=== PATIENT | male | born 1975 | race Caucasian/White ===

== ENCOUNTER 2017-04-12 10:11 | Emergency (ER) | payer MEDICARE, MEDICAID ==
[2017-04-12 10:28] VITALS: BP 173/106
--- NOTE | 2017-04-12 10:56 | EDM.PDOC ---
ED HPI GENERAL MEDICAL PROBLEM - General Chief Complaint: General Stated Complaint: MEDICATION/SHOT Time Seen by Provider: 04/12/17 10:48 Source of Information: Reports: Patient, Family, RN Notes Reviewed History Limitations: Reports: Physical Impairment - History of Present Illness INITIAL COMMENTS - FREE TEXT/NARRATIVE: Are 1-year-old gentleman with known history of paranoid schizophrenia comes in for medication administration of Abilify intramuscular he is in the process of changing providers has not fully establish with Dr. Cortes at the [facility] at which time he will get his medications there - Related Data Allergies Allergy/AdvReac Type Severity Reaction Status Date / Time haloperidol [From Haldol] AdvReac Agitation Verified 04/12/17 10:47 Home Meds: Home Meds ARIPiprazole [Abilify Maintena] 1 injection IM ASDIRECTED 04/12/17 [History] LORazepam [Ativan] 1 tab PO DAILY PRN 04/12/17 [History] Melatonin/Pyridoxine HCl (B6) [Melatonin 5 mg Tablet] 1 tab PO BEDTIME 04/12/17 [History] OLANZapine [Olanzapine] 1 tab PO BEDTIME 04/12/17 [History] OLANZapine [Olanzapine] 1 tab PO DAILY PRN 04/12/17 [History] glipiZIDE [Glucotrol] 1 tab PO DAILY 04/12/17 [History] Past Medical History Cardiovascular History: Reports: Hypertension Neurological History: Reports: Other (See Below) Other Neuro History: tardative dyskinesia Psychiatric History: Reports: Depression, Schizophrenia Endocrine/Metabolic History: Reports: Diabetes, Type II, Obesity/BMI 30+ - Infectious Disease History Infectious Disease History: Reports: Chicken pox Social & Family History - Tobacco Use Smoking Status *Q: Current Every Day Smoker Years of Tobacco use: 30 Packs/Tins Daily: 0.2 - Caffeine Use Caffeine Use: Reports: Coffee - Recreational Drug Use Recreational Drug Use: No ED ROS GENERAL - Review of Systems Review Of Systems: Unable To Obtain ED EXAM, GENERAL - Physical Exam Exam: Not Obtained Course - Vital Signs Last Recorded V/S: Last Vital Signs Temp 99.0 F 04/12/17 10:23 Pulse 75 04/12/17 10:23 Resp 18 04/12/17 10:23 BP 173/106 H 04/12/17 10:23 Pulse Ox 93 L 04/12/17 10:23 Departure - Departure Time of Disposition: 10:55 Disposition: Home, Self-Care 01 Condition: fair Clinical Impression: Schizophrenia Qualifiers: Schizophrenia type: paranoid schizophrenia Qualified Code(s): F20.0 - Paranoid schizophrenia - Discharge Information Forms: ED Department Discharge Additional Instructions: Continue on your current medications, keep your followup appointment with your primary care provider - Assessment/Plan Plan: Assessment Acuity = chronic Site and laterality = paranoid schizophrenia Etiology = unclear etiology Manifestations = paranoid delusions Location of injury = home Plan His care provider did have medication of Abilify 400 mg IM x one this was verified by pharmacy Patient was in agreement with the plan all questions were answered, they were instructed to return to the emergency department or call for worsening symptoms. This note was dictated using Synchronized voice recognition software please call with any questions.
[2017-04-12] MEDS ORDERED: ABILIFY MAINTENA 400MG IM ONE (11:30)
== END 2017-04-12 11:04 | disposition home or self-care (01) ==
LOC: JP.ED 10:11
DX: F20.0 Paranoid schizophrenia (principal); I10 Essential (primary) hypertension; F32.9 Major depressive disorder, single episode, unspecified; E11.9 Type 2 diabetes mellitus without complications; E66.9 Obesity, unspecified; Z68.42 Body mass index [BMI] 45.0-49.9, adult; F17.210 Nicotine dependence, cigarettes, uncomplicated; Z88.8 Allergy status to other drugs, medicaments and biological substances; Z79.899 Other long term (current) drug therapy
CPT/HCPCS: 99281; 99285

== ENCOUNTER 2017-04-22 13:05 | Emergency (ER) | payer MEDICARE, MEDICAID ==
[2017-04-22 13:29] VITALS: BP 198/116
--- NOTE | 2017-04-22 16:09 | EDM.PDOC ---
ED HPI GENERAL MEDICAL PROBLEM - General Chief Complaint: Behavioral/Psych Stated Complaint: EVEL Time Seen by Provider: 04/22/17 14:00 Source of Information: Reports: Patient, Family History Limitations: Reports: No Limitations - History of Present Illness INITIAL COMMENTS - FREE TEXT/NARRATIVE: Gil is a 41 year old male who presents to the ED today via police for evaluation of mental health. Patient on arrival here is in no acute distress, he is calm and cooperative. Police mentioned that patient did not want to attend his clinic appt today and begin talking about going to lunch at the governor's house and didn't want to go to his appt. Patient denies any complaints on arrival. Onset: Today left foot Pain Score (Numeric/FACES): 4 - Related Data Allergies Allergy/AdvReac Type Severity Reaction Status Date / Time haloperidol [From Haldol] AdvReac Agitation Verified 04/22/17 13:42 Home Meds: Home Meds ARIPiprazole [Abilify Maintena] 1 injection IM ASDIRECTED 04/12/17 [History] LORazepam [Ativan] 1 tab PO DAILY PRN 04/12/17 [History] Melatonin/Pyridoxine HCl (B6) [Melatonin 5 mg Tablet] 1 tab PO BEDTIME 04/12/17 [History] OLANZapine [Olanzapine] 1 tab PO BEDTIME 04/12/17 [History] OLANZapine [Olanzapine] 1 tab PO DAILY PRN 04/12/17 [History] glipiZIDE [Glucotrol] 1 tab PO DAILY 04/12/17 [History] Past Medical History Cardiovascular History: Reports: Hypertension Neurological History: Reports: Other (See Below) Other Neuro History: tardative dyskinesia Psychiatric History: Reports: Depression, Schizophrenia, Other (See Below) Other Psychiatric History: delusions Endocrine/Metabolic History: Reports: Diabetes, Type II, Obesity/BMI 30+ - Infectious Disease History Infectious Disease History: Reports: Chicken Pox Social & Family History - Tobacco Use Smoking Status *Q: Current Every Day Smoker Years of Tobacco use: 30 Packs/Tins Daily: 0.1 - Caffeine Use Caffeine Use: Reports: Coffee - Recreational Drug Use Recreational Drug Use: No ED ROS GENERAL - Review of Systems Review Of Systems: ROS reveals no pertinent complaints other than HPI. ED EXAM, BEHAVIORAL HEALTH - Physical Exam Exam: See Below Exam Limited By: No Limitations General Appearance: Alert, WD/WN, No Apparent Distress Neck: Normal Inspection Respiratory/Chest: No Respiratory Distress, Lungs Clear, Normal Breath Sounds Cardiovascular: Normal Peripheral Pulses, Regular Rate, Rhythm, No Murmur GI/Abdominal: Normal Bowel Sounds, Soft, Non-Tender Extremities: Normal Inspection, Other (large blister to plantar aspect of left foot, callous to right lateral first metatarsal, bruised nail on second to of right foot) Neurological: Alert, Normal Mood/Affect, Oriented x 3 Psychiatric: Alert, Flat Affect COURSE, BEHAVIORAL HEALTH COMP - Course Vital Signs: Last Vital Signs Temp 37.8 C 04/22/17 13:41 Pulse 90 04/22/17 13:41 Resp 16 04/22/17 13:41 BP 198/116 H 04/22/17 13:41 Pulse Ox 95 04/22/17 13:41 Gil is a 41 year old male with a hx of schizophrenia and vasculitis who presents to the ED today as requested by his mom for what initially was reported to be a mental health evaluation. Patient is in no acute distress on arrival here. Patient has some blisters/callouses to feet with no signs of infection or cellulitis. Mom arrived to the ED and I spent a fair amount of time discussed patient's arrival here today and what her goal was in bringing patient here. Mom reports that she would like patient admitted overnight for "medical evaluation". Mom reports patient lacks insight secondary to his schizophrenia and every time he has a doctors appt he becomes upset and starts talking about false grandiose ideas. Patient has an appt with primary today at 4:10 and when mom told him about this is when he began saying he needed to see the governor. Mom reports that patient is diabetic secondary to psych meds, he takes Glipizide daily. Patient is also on abilify. Mom reports patient has a neonatal social worker and support from the state to keep him at home living with her. I informed Mom that I will check some routine blood work today but it is unlikely that patient would meet any medical indication for admission and that primary care establishment/follow up is essential in keeping up to date with his elevated blood pressure hx and diabetes. Blood work here today returns with normal white count and HGB, CMP returns with mildly elevated ALT and AST of 92 and 59. Glucose returns at 159, HGB a1c is 8.2. TSH is normal. I discussed my findings with patient's mom at 1535, she is hoping to still make clinic appt, unfortunately she cancelled this appt and clinic cannot see patient today. A list of date and times was given to mom to call back and reschedule. Mom reports she feels safe taking patient home today and does not want patient seen by crisis team nor was she looking for any type of inpatient psych facility/admission. Patient denies self harm/or suidical ideation today. He denies any intent to harm anyone else. Patient was discharged with his mom and in stable condition. Orders, Labs, Meds: Laboratory Tests 04/22/17 04/22/17 04/22/17 Range/Units 14:57 14:57 14:57 WBC 9.4 (4.5-11.0) K/uL RBC 5.23 (4.30-5.90) M/uL Hgb 14.5 (12.0-15.0) g/dL Hct 42.2 (40.0-54.0) % MCV 81 (80-98) fL MCH 28 (27-31) pg MCHC 34 (32-36) % Plt Count 213 (150-400) K/uL Neut % (Auto) 73 H (36-66) % Lymph % (Auto) 17 L (24-44) % Gray % (Auto) 9 H (2-6) % Eos % (Auto) 0 L (2-4) % Baso % (Auto) 0 (0-1) % Sodium 141 (140-148) mmol/L Potassium 3.9 (3.6-5.2) mmol/L Chloride 104 (100-108) mmol/L Carbon Dioxide 26 (21-32) mmol/L Anion Gap 10.8 (5.0-14.0) mmol/L BUN 12 (7-18) mg/dL Creatinine 1.0 (0.8-1.3) mg/dL Est Cr Clr Drug Dosing 105.62 mL/min Estimated GFR (MDRD) > 60 (>60) Glucose 159 H (74-106) mg/dL Hemoglobin A1c 8.2 H (4.5-6.2) % Calcium 8.7 (8.5-10.1) mg/dL Total Bilirubin 0.6 (0.2-1.0) mg/dL AST 59 H (15-37) U/L ALT 92 H (12-78) U/L Alkaline Phosphatase 77 (46-116) U/L Total Protein 7.6 (6.4-8.2) g/dL Albumin 3.9 (3.4-5.0) g/dL Globulin 3.7 H (2.3-3.5) g/dL Albumin/Globulin Ratio 1.1 L (1.2-2.2) TSH, Ultra Sensitive (0.358-3.740) uIU/mL 04/22/17 Range/Units 14:57 WBC (4.5-11.0) K/uL RBC (4.30-5.90) M/uL Hgb (12.0-15.0) g/dL Hct (40.0-54.0) % MCV (80-98) fL MCH (27-31) pg MCHC (32-36) % Plt Count (150-400) K/uL Neut % (Auto) (36-66) % Lymph % (Auto) (24-44) % Gray % (Auto) (2-6) % Eos % (Auto) (2-4) % Baso % (Auto) (0-1) % Sodium (140-148) mmol/L Potassium (3.6-5.2) mmol/L Chloride (100-108) mmol/L Carbon Dioxide (21-32) mmol/L Anion Gap (5.0-14.0) mmol/L BUN (7-18) mg/dL Creatinine (0.8-1.3) mg/dL Est Cr Clr Drug Dosing mL/min Estimated GFR (MDRD) (>60) Glucose (74-106) mg/dL Hemoglobin A1c (4.5-6.2) % Calcium (8.5-10.1) mg/dL Total Bilirubin (0.2-1.0) mg/dL AST (15-37) U/L ALT (12-78) U/L Alkaline Phosphatase (46-116) U/L Total Protein (6.4-8.2) g/dL Albumin (3.4-5.0) g/dL Globulin (2.3-3.5) g/dL Albumin/Globulin Ratio (1.2-2.2) TSH, Ultra Sensitive 1.517 (0.358-3.740) uIU/mL Departure - Departure Time of Disposition: 16:30 Disposition: Home, Self-Care 01 Preliminary Cause of *Q: Cardiac arrest Condition: good Clinical Impression: Blister, Vasculitis limited to skin Schizophrenia Qualifiers: Schizophrenia type: unspecified Qualified Code(s): F20.9 - Schizophrenia, unspecified - Discharge Information Instructions: Vasculitis Referrals: PCP,None [Primary Care Provider] - Forms: ED Department Discharge
== END 2017-04-22 16:09 | disposition home or self-care (01) ==
LOC: JP.ED 13:05
DX: L95.9 Vasculitis limited to the skin, unspecified (principal); F20.9 Schizophrenia, unspecified; I10 Essential (primary) hypertension; F32.9 Major depressive disorder, single episode, unspecified; E11.9 Type 2 diabetes mellitus without complications; F17.210 Nicotine dependence, cigarettes, uncomplicated; E66.9 Obesity, unspecified; Z68.42 Body mass index [BMI] 45.0-49.9, adult; Z79.899 Other long term (current) drug therapy; Z88.8 Allergy status to other drugs, medicaments and biological substances
CPT/HCPCS: 36415; 80053; 83036; 84443; 85025; 99282; 99285

== ENCOUNTER 2017-11-30 04:39 | Emergency (ER) | payer MEDICARE, MEDICAID ==
[2017-11-30 04:45] VITALS: BP 146/87
--- NOTE | 2017-11-30 05:14 | EDM.PDOCBH ---
<Ana Laura Valdovinos - Last Filed: 11/30/17 05:18> ED HPI GENERAL MEDICAL PROBLEM - General Chief Complaint: Behavioral/Psych Stated Complaint: PSYCH EVAL / BROUGHT IN BY LAW ENFORCEMENT Time Seen by Provider: 11/30/17 05:09 Source of Information: Reports: Patient History Limitations: Reports: No Limitations - History of Present Illness INITIAL COMMENTS - FREE TEXT/NARRATIVE: pt arrived with a history of being out of contact with reality. He was outside not properly dressed today. he was threating to leave. The weather outside is 20 below . He would be at risk to be njured from the weather. He appears to be out of contact with reality. He is calling his mother a foot soldier. Onset: Gradual, Other (Pt has been much worse the past few weeks. He has not taken any meds for a long time. ) Duration: Week(s):, Getting Worse - Related Data Allergies Allergy/AdvReac Type Severity Reaction Status Date / Time haloperidol [From Haldol] AdvReac Agitation Verified 04/22/17 13:42 Home Meds: Home Meds OLANZapine [ZyPREXA Zydis] 5 mg PO DAILY PRN 11/30/17 [History] OLANZapine [ZyPREXA Zydis] 15 mg PO DAILY 11/30/17 [History] metFORMIN [Glucophage] 500 mg PO QID 11/30/17 [History] Past Medical History Cardiovascular History: Reports: Hypertension Neurological History: Reports: Other (See Below) Other Neuro History: tardative dyskinesia Psychiatric History: Reports: Depression, Schizophrenia, Other (See Below) Other Psychiatric History: delusions Endocrine/Metabolic History: Reports: Diabetes, Type II, Obesity/BMI 30+ - Infectious Disease History Infectious Disease History: Reports: Chicken Pox Social & Family History - Tobacco Use Smoking Status *Q: Current Every Day Smoker Years of Tobacco use: 25 Packs/Tins Daily: 0.2 Tobacco Use Comment: 3 cigars a day - Caffeine Use Caffeine Use: Reports: None - Alcohol Use Days Per Week of Alcohol Use: 3 Number of Drinks Per Day: 1 Total Drinks Per Week: 3 - Recreational Drug Use Recreational Drug Use: No ED ROS GENERAL - Review of Systems Review Of Systems: See Below Constitutional: Reports: No Symptoms HEENT: Reports: No Symptoms Respiratory: Reports: No Symptoms Cardiovascular: Reports: No Symptoms Endocrine: Reports: No Symptoms GI/Abdominal: Reports: No Symptoms : Reports: No Symptoms Musculoskeletal: Reports: No Symptoms Skin: Reports: No Symptoms Psychiatric: Reports: Agitation, Hallucinations, Other (pt has total los of contact with reality. ) ED EXAM, BEHAVIORAL HEALTH - Physical Exam Exam: See Below Text/Narrative:: pt was outside today threatening to run. It is 20 below. He has no contact with reality. He has been off of all meds. Exam Limited By: Altered Mental Status General Appearance: Alert, Other ( Pt makes no sense, los of contact with reality. He did not want a physical exam. ) COURSE, BEHAVIORAL HEALTH COMP - Course Vital Signs: Last Vital Signs Temp 95.8 F 11/30/17 04:41 Pulse 87 11/30/17 04:41 Resp 18 11/30/17 04:41 BP 146/87 H 11/30/17 04:41 Pulse Ox 96 11/30/17 04:41 Orders, Labs, Meds: Laboratory Tests 11/30/17 11/30/17 11/30/17 Range/Units 05:07 05:10 05:10 WBC 7.2 (4.5-11.0) K/uL RBC 5.63 (4.30-5.90) M/uL Hgb 15.9 H (12.0-15.0) g/dL Hct 46.2 (40.0-54.0) % MCV 82 (80-98) fL MCH 28 (27-31) pg MCHC 34 (32-36) % Plt Count 177 (150-400) K/uL Neut % (Auto) 67 H (36-66) % Lymph % (Auto) 24 (24-44) % [place] % (Auto) 9 H (2-6) % Eos % (Auto) 0 L (2-4) % Baso % (Auto) 0 (0-1) % Sodium 135 L (140-148) mmol/L Potassium 4.1 (3.6-5.2) mmol/L Chloride 100 (100-108) mmol/L Carbon Dioxide 24 (21-32) mmol/L Anion Gap 15.1 H (5.0-14.0) mmol/L BUN 7 (7-18) mg/dL Creatinine 1.1 (0.8-1.3) mg/dL Est Cr Clr Drug Dosing 95.04 mL/min Estimated GFR (MDRD) > 60 (>60) Glucose 396 H (74-106) mg/dL Calcium 9.0 (8.5-10.1) mg/dL Total Bilirubin 0.5 (0.2-1.0) mg/dL AST 38 H (15-37) U/L ALT 68 (12-78) U/L Alkaline Phosphatase 89 (46-116) U/L Total Protein 6.9 (6.4-8.2) g/dL Albumin 3.5 (3.4-5.0) g/dL Globulin 3.4 (2.3-3.5) g/dL Albumin/Globulin Ratio 1.0 L (1.2-2.2) TSH, Ultra Sensitive (0.358-3.740) uIU/mL Urine Color Urine Appearance Urine pH (4.5-8.0) Ur Specific [place] (1.008-1.030) Urine Protein (NEGATIVE) mg/dL Urine Glucose (UA) (NEGATIVE) mg/dL Urine Ketones (NEGATIVE) mg/dL Urine Occult Blood (NEGATIVE) Urine Nitrite (NEGAITVE) Urine Bilirubin (NEGATIVE) Urine Urobilinogen (NORMAL) mg/dL Ur Leukocyte Esterase (NEGATIVE) Urine RBC (0-5) Urine WBC (0-5) Ur Epithelial Cells Amorphous Sediment Urine Bacteria Urine Mucus Salicylates (2.0-20.0) mg/dL Urine Opiates Screen (NEGATIVE) Ur Oxycodone Screen (NEGATIVE) Urine Methadone Screen (NEGATIVE) Ur Propoxyphene Screen (NEGATIVE) Acetaminophen (10.0-30.0) ug/mL Ur Barbiturates Screen (NEGATIVE) Ur Tricyclics Screen (NEGATIVE) Ur Phencyclidine Scrn (NEGATIVE) Ur Amphetamine Screen (NEGATIVE) U Methamphetamines Scrn (NEGATIVE) Urine MDMA Screen (NEGATIVE) U Benzodiazepines Scrn (NEGATIVE) U Cocaine Metab Screen (NEGATIVE) U Marijuana (THC) Screen (NEGATIVE) Ethyl Alcohol 3 mg/dL 11/30/17 11/30/17 11/30/17 Range/Units 05:10 05:15 05:24 WBC (4.5-11.0) K/uL RBC (4.30-5.90) M/uL Hgb (12.0-15.0) g/dL Hct (40.0-54.0) % MCV (80-98) fL MCH (27-31) pg MCHC (32-36) % Plt Count (150-400) K/uL Neut % (Auto) (36-66) % Lymph % (Auto) (24-44) % [place] % (Auto) (2-6) % Eos % (Auto) (2-4) % Baso % (Auto) (0-1) % Sodium (140-148) mmol/L Potassium (3.6-5.2) mmol/L Chloride (100-108) mmol/L Carbon Dioxide (21-32) mmol/L Anion Gap (5.0-14.0) mmol/L BUN (7-18) mg/dL Creatinine (0.8-1.3) mg/dL Est Cr Clr Drug Dosing mL/min Estimated GFR (MDRD) (>60) Glucose (74-106) mg/dL Calcium (8.5-10.1) mg/dL Total Bilirubin (0.2-1.0) mg/dL AST (15-37) U/L ALT (12-78) U/L Alkaline Phosphatase (46-116) U/L Total Protein (6.4-8.2) g/dL Albumin (3.4-5.0) g/dL Globulin (2.3-3.5) g/dL Albumin/Globulin Ratio (1.2-2.2) TSH, Ultra Sensitive 1.231 (0.358-3.740) uIU/mL Urine Color Urine Appearance Urine pH (4.5-8.0) Ur Specific [place] (1.008-1.030) Urine Protein (NEGATIVE) mg/dL Urine Glucose (UA) (NEGATIVE) mg/dL Urine Ketones (NEGATIVE) mg/dL Urine Occult Blood (NEGATIVE) Urine Nitrite (NEGAITVE) Urine Bilirubin (NEGATIVE) Urine Urobilinogen (NORMAL) mg/dL Ur Leukocyte Esterase (NEGATIVE) Urine RBC (0-5) Urine WBC (0-5) Ur Epithelial Cells Amorphous Sediment Urine Bacteria Urine Mucus Salicylates 3.2 (2.0-20.0) mg/dL Urine Opiates Screen Negative (NEGATIVE) Ur Oxycodone Screen Negative (NEGATIVE) Urine Methadone Screen Negative (NEGATIVE) Ur Propoxyphene Screen Negative (NEGATIVE) Acetaminophen 0.0 L (10.0-30.0) ug/mL Ur Barbiturates Screen Negative (NEGATIVE) Ur Tricyclics Screen Negative (NEGATIVE) Ur Phencyclidine Scrn Negative (NEGATIVE) Ur Amphetamine Screen Negative (NEGATIVE) U Methamphetamines Scrn Negative (NEGATIVE) Urine MDMA Screen Negative (NEGATIVE) U Benzodiazepines Scrn Negative (NEGATIVE) U Cocaine Metab Screen Negative (NEGATIVE) U Marijuana (THC) Screen Negative (NEGATIVE) Ethyl Alcohol mg/dL 11/30/17 Range/Units 05:24 WBC (4.5-11.0) K/uL RBC (4.30-5.90) M/uL Hgb (12.0-15.0) g/dL Hct (40.0-54.0) % MCV (80-98) fL MCH (27-31) pg MCHC (32-36) % Plt Count (150-400) K/uL Neut % (Auto) (36-66) % Lymph % (Auto) (24-44) % [place] % (Auto) (2-6) % Eos % (Auto) (2-4) % Baso % (Auto) (0-1) % Sodium (140-148) mmol/L Potassium (3.6-5.2) mmol/L Chloride (100-108) mmol/L Carbon Dioxide (21-32) mmol/L Anion Gap (5.0-14.0) mmol/L BUN (7-18) mg/dL Creatinine (0.8-1.3) mg/dL Est Cr Clr Drug Dosing mL/min Estimated GFR (MDRD) (>60) Glucose (74-106) mg/dL Calcium (8.5-10.1) mg/dL Total Bilirubin (0.2-1.0) mg/dL AST (15-37) U/L ALT (12-78) U/L Alkaline Phosphatase (46-116) U/L Total Protein (6.4-8.2) g/dL Albumin (3.4-5.0) g/dL Globulin (2.3-3.5) g/dL Albumin/Globulin Ratio (1.2-2.2) TSH, Ultra Sensitive (0.358-3.740) uIU/mL Urine Color Yellow Urine Appearance Clear Urine pH 5.0 (4.5-8.0) Ur Specific [place] 1.010 (1.008-1.030) Urine Protein Negative (NEGATIVE) mg/dL Urine Glucose (UA) 1000 H (NEGATIVE) mg/dL Urine Ketones Negative (NEGATIVE) mg/dL Urine Occult Blood Negative (NEGATIVE) Urine Nitrite Negative (NEGAITVE) Urine Bilirubin Negative (NEGATIVE) Urine Urobilinogen Normal (NORMAL) mg/dL Ur Leukocyte Esterase Negative (NEGATIVE) Urine RBC Not seen (0-5) Urine WBC Not seen (0-5) Ur Epithelial Cells Not seen Amorphous Sediment Rare Urine Bacteria Not seen Urine Mucus Not seen Salicylates (2.0-20.0) mg/dL Urine Opiates Screen (NEGATIVE) Ur Oxycodone Screen (NEGATIVE) Urine Methadone Screen (NEGATIVE) Ur Propoxyphene Screen (NEGATIVE) Acetaminophen (10.0-30.0) ug/mL Ur Barbiturates Screen (NEGATIVE) Ur Tricyclics Screen (NEGATIVE) Ur Phencyclidine Scrn (NEGATIVE) Ur Amphetamine Screen (NEGATIVE) U Methamphetamines Scrn (NEGATIVE) Urine MDMA Screen (NEGATIVE) U Benzodiazepines Scrn (NEGATIVE) U Cocaine Metab Screen (NEGATIVE) U Marijuana (THC) Screen (NEGATIVE) Ethyl Alcohol mg/dL Medications Discontinued Medications Generic Name Dose Route Start Last Admin Trade Name Freq PRN Reason Stop Dose Admin Insulin Human Regular 10 unit 11/30/17 07:20 11/30/17 08:44 Novolin R SUBCUT 11/30/17 07:21 Not Given ONETIME ONE Protocol Lorazepam 1 mg 11/30/17 05:38 11/30/17 07:41 Ativan PO 11/30/17 05:39 1 mg ONETIME ONE Administration Metformin HCl 500 mg 11/30/17 05:36 11/30/17 07:42 Glucophage PO 11/30/17 05:37 500 mg ONETIME ONE Administration Metformin HCl Confirm 11/30/17 06:05 Glucophage Administered 11/30/17 06:06 Dose 1,000 mg .ROUTE .STK-MED ONE Metformin HCl 500 mg 11/30/17 08:26 11/30/17 08:34 Glucophage PO 11/30/17 08:27 500 mg ONETIME ONE Administration Olanzapine 15 mg 11/30/17 05:37 11/30/17 08:45 Zyprexa PO 11/30/17 05:38 Not Given ONETIME ONE Medical Clearance: 11/30/17 05:18 according to mother he has a long history of schizophrenia, he is not taking his meds at this time. He is a known diabetic. -- He uses metformin for that. 11/30/17 05:20 11/30/17 05:32 Pt has a bs of 396. He uses metformin 500mg qid. Departure - Departure Disposition: DC/Tfer to Other 70 Clinical Impression: Schizophrenia Qualifiers: Schizophrenia type: unspecified Qualified Code(s): F20.9 - Schizophrenia, unspecified Hyperglycemia due to type 2 diabetes mellitus Qualifiers: Diabetes mellitus alf insulin use: without rodent exterminator use Qualified Code(s ): E11.65 - Type 2 diabetes mellitus with hyperglycemia - Discharge Information Referrals: PCP,None [Primary Care Provider] - Forms: ED Department Discharge Care Plan Goals: Patient will be transferred to [facility] for inpatient stabilization and care for chronic schizophrenia. <Jaime Wang - Last Filed: 11/30/17 11:32> COURSE, BEHAVIORAL HEALTH COMP - Course Re-Assessment/Re-Exam: Initial glucometer on arrival was 396, he was medically stable but the psychiatric facilities were concerned about the hyperglycemia. We did convince him to take a 500 mg metformin at 7 AM, at 8 AM his glucose was 319. He refused insulin but did agree to a second dose of 500 mg metformin, if he can avoid extra sugar load in route to [place] he should arrive with a reasonable blood glucose. I think if they can get him to cooperate and take metformin 4 times a day on a reasonable diabetic diet his glucose should be controlled without having to use insulin. Dr. Higuera kindly accepted the patient for transfer. Departure - Departure Time of Disposition: 11:04 Condition: Fair
[2017-11-30] MEDS ORDERED: metFORMIN 500 MG Tab PO ONE ×2 (05:36→08:26)
[2017-11-30] MEDS ORDERED: OLANZapine 5 MG Tab PO ONE (05:37)
[2017-11-30] MEDS ORDERED: LORazepam 1 MG Tab PO ONE (05:38)
[2017-11-30] MEDS ORDERED: metFORMIN 500 MG Tab ONE (06:05)
[2017-11-30] MEDS ORDERED: Insulin Regular, Human 100 Units/ML 10 ML Vial SUBCUT ONE (07:20)
== END 2017-11-30 11:04 | disposition other institution (70) ==
LOC: JP.ED 04:39
DX: F20.9 Schizophrenia, unspecified (principal); E11.65 Type 2 diabetes mellitus with hyperglycemia; I10 Essential (primary) hypertension; F32.9 Major depressive disorder, single episode, unspecified; F17.210 Nicotine dependence, cigarettes, uncomplicated; Z79.84 Long term (current) use of oral hypoglycemic drugs; Z88.8 Allergy status to other drugs, medicaments and biological substances
CPT/HCPCS: 36415; 80053; 80305; 81001; 82962; 84443; 85025; 99285; A9270; G0480; 99283

== ENCOUNTER 2017-12-19 14:21 | Emergency (ER) | payer MEDICARE, MEDICAID ==
--- NOTE | 2017-12-19 15:17 | EDM.PDOC ---
ED HPI GENERAL MEDICAL PROBLEM - General Chief Complaint: Skin Complaint Stated Complaint: RECHECK FEET Time Seen by Provider: 12/19/17 15:00 Source of Information: Reports: Patient, Family History Limitations: Reports: No Limitations - History of Present Illness INITIAL COMMENTS - FREE TEXT/NARRATIVE: 42-year-old male with psychiatric issues went outside in the cold last night and frostbite his toes. He had a court appearance this morning and the [place] administrative law judge ordered him to come to the emergency room to have his feet looked at. They're not painful, no blistering but they are red. Onset: Gradual (Overnight) Feet Pain Score (Numeric/FACES): 0 - Related Data Allergies Allergy/AdvReac Type Severity Reaction Status Date / Time haloperidol [From Haldol] AdvReac Agitation Verified 04/22/17 13:42 Home Meds: Home Meds OLANZapine [ZyPREXA Zydis] 5 mg PO DAILY PRN 11/30/17 [History] OLANZapine [ZyPREXA Zydis] 15 mg PO DAILY 11/30/17 [History] metFORMIN [Glucophage] 500 mg PO QID 11/30/17 [History] Past Medical History Cardiovascular History: Reports: Hypertension Neurological History: Reports: Other (See Below) Other Neuro History: tardative dyskinesia Psychiatric History: Reports: Depression, Schizophrenia, Other (See Below) Other Psychiatric History: delusions Endocrine/Metabolic History: Reports: Diabetes, Type II, Obesity/BMI 30+ - Infectious Disease History Infectious Disease History: Reports: C-Difficile Social & Family History - Tobacco Use Smoking Status *Q: Current Every Day Smoker Years of Tobacco use: 30 Packs/Tins Daily: 0.1 - Caffeine Use Caffeine Use: Reports: Coffee Other Caffeine Use: capichino drinks - Alcohol Use Days Per Week of Alcohol Use: 3 Number of Drinks Per Day: 1 Total Drinks Per Week: 3 - Recreational Drug Use Recreational Drug Use: No ED ROS GENERAL - Review of Systems Review Of Systems: See Below Constitutional: Denies: Fever Respiratory: Denies: Shortness of Breath GI/Abdominal: Denies: Nausea, Vomiting Skin: Reports: Erythema (Toes bilaterally) Neurological: Denies: Headache, Paresthesia ED EXAM, SKIN/RASH Exam: See Below Exam Limited By: No Limitations General Appearance: Alert, No Apparent Distress Respiratory/Chest: No Respiratory Distress Extremities: Other (Exam is otherwise limited to the lower extremities. He has diffuse erythema of the toes but normal capillary refill, no significant tenderness or blistering.) Neurological: Alert, Oriented Course - Vital Signs Last Recorded V/S: Last Vital Signs Temp 98.8 F 12/19/17 14:38 Pulse 66 12/19/17 14:38 Resp 14 12/19/17 14:38 BP Pulse Ox - Re-Assessments/Exams Free Text/Narrative Re-Assessment/Exam: 12/19/17 15:15 Appears this patient does have some garcia bite of the toes but it's first degree and should continue to improve. If he worsens or starts having discoloration of the toes or increased pain, I encouraged the mom to take him over the surgical department of the clinic and see Dr. Huang Departure - Departure Time of Disposition: 15:25 Disposition: Home, Self-Care 01 Condition: Good Clinical Impression: Superficial frostbite of unspecified toe(s), initial encounter - Discharge Information Instructions: Type 2 Diabetes Mellitus, Adult Referrals: PCP,None [Primary Care Provider] - Forms: ED Department Discharge Care Plan Goals: Avoid further cold injury to your feet, avoid your feet getting wet and cold and wear dry stockings. Recheck with Dr. Huang at the clinic if concerns of not healing satisfactorily.
== END 2017-12-19 15:25 | disposition home or self-care (01) ==
LOC: JP.ED 14:21
DX: T33.839A Superficial frostbite of unspecified toe(s), initial encounter (principal); E11.9 Type 2 diabetes mellitus without complications; I10 Essential (primary) hypertension; F17.210 Nicotine dependence, cigarettes, uncomplicated; F20.9 Schizophrenia, unspecified; Z79.84 Long term (current) use of oral hypoglycemic drugs; Z88.8 Allergy status to other drugs, medicaments and biological substances; Z79.899 Other long term (current) drug therapy
CPT/HCPCS: 99284; 99285

== ENCOUNTER 2017-12-28 13:50 | Emergency (ER) | payer MEDICARE, MEDICAID ==
[2017-12-28 14:12] VITALS: BP 164/105
--- NOTE | 2017-12-28 14:40 | EDM.PDOCBH ---
ED HPI GENERAL MEDICAL PROBLEM - General Chief Complaint: Behavioral/Psych Stated Complaint: GLORIA Time Seen by Provider: 12/28/17 14:25 Source of Information: Reports: Patient, Old Records, Police, RN History Limitations: Reports: No Limitations - History of Present Illness INITIAL COMMENTS - FREE TEXT/NARRATIVE: 42 yo male here via police stating that this man lives with his mother. Over the past 2 days he has been acting strangely in that he has been "cleaning" the house with some less than conventional means. He has schizophrenia. He has been breaking things in the home lately. Not suicidal or homocidal. His mother is fearful that she could get harmed. Not certain at this point if he is taking his meds. Says he is only on Metformin now, his Zyprexa was stopped years ago. His mother who is a very good historian says his 15 mg Zydis was stopped in early December and he did well for 2-3 days and has since been deteriorating. Has been eloping from time to time. Hearing his brother's voice. Strange behavior, generally not violent. She would like him to go back to [place] where he was last until early December. Dr. Higuera was his psychiatrist. 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 Onset Date: 12/27/17 Duration: Hour(s): Location: Reports: Generalized Quality: Reports: Other (no pain) Improves with: Reports: None Worsens with: Reports: Other (? time) Context: Reports: Other (Schizophrenia) Associated Symptoms: Reports: No Other Symptoms Treatments [employer]: Reports: Other (see below) (none) - Related Data Allergies Allergy/AdvReac Type Severity Reaction Status Date / Time haloperidol [From Haldol] AdvReac Agitation Verified 12/28/17 14:03 Home Meds: Home Meds OLANZapine [ZyPREXA Zydis] 5 mg PO DAILY PRN 11/30/17 [History] OLANZapine [ZyPREXA Zydis] 15 mg PO DAILY 11/30/17 [History] metFORMIN [Glucophage] 500 mg PO QID 11/30/17 [History] Past Medical History Cardiovascular History: Reports: Hypertension Neurological History: Reports: Other (See Below) Other Neuro History: tardative dyskinesia Psychiatric History: Reports: Depression, Schizophrenia, Other (See Below) Other Psychiatric History: delusions Endocrine/Metabolic History: Reports: Diabetes, Type II, Obesity/BMI 30+ - Infectious Disease History Infectious Disease History: Reports: C-Difficile Social & Family History - Tobacco Use Smoking Status *Q: Current Every Day Smoker Years of Tobacco use: 30 Packs/Tins Daily: 0.1 - Caffeine Use Caffeine Use: Reports: Coffee Other Caffeine Use: capichino drinks - Alcohol Use Days Per Week of Alcohol Use: 3 Number of Drinks Per Day: 1 Total Drinks Per Week: 3 - Recreational Drug Use Recreational Drug Use: No ED ROS GENERAL - Review of Systems Review Of Systems: See Below Constitutional: Reports: No Symptoms HEENT: Reports: No Symptoms Respiratory: Reports: No Symptoms Cardiovascular: Reports: No Symptoms GI/Abdominal: Reports: No Symptoms : Reports: No Symptoms Musculoskeletal: Reports: No Symptoms Skin: Reports: No Symptoms Neurological: Reports: No Symptoms Psychiatric: Reports: Other (Odd behaviors at home over the last 2 days) ED EXAM, BEHAVIORAL HEALTH - Physical Exam Exam: See Below Exam Limited By: No Limitations General Appearance: Alert, WD/WN, No Apparent Distress, Obese Eye Exam: Bilateral Eye: Normal Inspection Ears: Normal External Exam, Normal Canal, Hearing Grossly Normal, Normal TMs Nose: Normal Inspection, Normal Mucosa, No Blood Throat/Mouth: Normal Inspection, Normal Lips, Normal Oropharynx, Normal Voice, No Airway Compromise Head: Atraumatic, Normocephalic Neck: Normal Inspection, Supple Respiratory/Chest: No Respiratory Distress, Lungs Clear, Normal Breath Sounds, No Accessory Muscle Use Cardiovascular: Regular Rate, Rhythm GI/Abdominal: Normal Bowel Sounds, Soft, Non-Tender Back Exam: Normal Inspection. No: CVA Tenderness (R), CVA Tenderness (L) Extremities: Pedal Edema (L calf and ankle with 1+ pitting edema, trace on the R ) Neurological: Alert, CN II-XII Intact, No Motor/Sensory Deficits Psychiatric: Alert, Normal Affect, Normal Mood, Other (poor historian) Skin Exam: Warm, Dry, Intact, Normal color, No rash COURSE, BEHAVIORAL HEALTH COMP - Course Vital Signs: Last Vital Signs Temp 36.4 C 12/28/17 14:09 Pulse 90 12/28/17 14:09 Resp 14 12/28/17 14:09 BP 164/105 H 12/28/17 14:09 Pulse Ox 98 01/27/18 14:09 Orders, Labs, Meds: Laboratory Tests 12/28/17 12/28/17 12/28/17 Range/Units 13:56 14:04 14:09 WBC 7.7 (4.5-11.0) K/uL RBC 5.16 (4.30-5.90) M/uL Hgb 14.3 (12.0-15.0) g/dL Hct 43.0 (40.0-54.0) % MCV 83 (80-98) fL MCH 28 (27-31) pg MCHC 33 (32-36) % Plt Count 232 (150-400) K/uL Sodium (140-148) mmol/L Potassium (3.6-5.2) mmol/L Chloride (100-108) mmol/L Carbon Dioxide (21-32) mmol/L Anion Gap (5.0-14.0) mmol/L BUN (7-18) mg/dL Creatinine (0.8-1.3) mg/dL Est Cr Clr Drug Dosing mL/min Estimated GFR (MDRD) (>60) Glucose (74-106) mg/dL Calcium (8.5-10.1) mg/dL Urine Color Yellow Urine Appearance Clear Urine pH 7.0 (4.5-8.0) Ur Specific [place] 1.005 L (1.008-1.030) Urine Protein Negative (NEGATIVE) mg/dL Urine Glucose (UA) Normal (NEGATIVE) mg/dL Urine Ketones Negative (NEGATIVE) mg/dL Urine Occult Blood Negative (NEGATIVE) Urine Nitrite Negative (NEGAITVE) Urine Bilirubin Negative (NEGATIVE) Urine Urobilinogen Normal (NORMAL) mg/dL Ur Leukocyte Esterase Negative (NEGATIVE) Urine RBC Not seen (0-5) Urine WBC Not seen (0-5) Ur Epithelial Cells Not seen Amorphous Sediment Rare Urine Bacteria Not seen Urine Mucus Not seen Urine Opiates Screen Negative (NEGATIVE) Ur Oxycodone Screen Negative (NEGATIVE) Urine Methadone Screen Negative (NEGATIVE) Ur Propoxyphene Screen Negative (NEGATIVE) Ur Barbiturates Screen Negative (NEGATIVE) Ur Tricyclics Screen Negative (NEGATIVE) Ur Phencyclidine Scrn Negative (NEGATIVE) Ur Amphetamine Screen Negative (NEGATIVE) U Methamphetamines Scrn Negative (NEGATIVE) Urine MDMA Screen Negative (NEGATIVE) U Benzodiazepines Scrn Positive H (NEGATIVE) U Cocaine Metab Screen Negative (NEGATIVE) U Marijuana (THC) Screen Negative (NEGATIVE) Ethyl Alcohol mg/dL 12/28/17 12/28/17 Range/Units 14:09 14:09 WBC (4.5-11.0) K/uL RBC (4.30-5.90) M/uL Hgb (12.0-15.0) g/dL Hct (40.0-54.0) % MCV (80-98) fL MCH (27-31) pg MCHC (32-36) % Plt Count (150-400) K/uL Sodium 139 L (140-148) mmol/L Potassium 3.7 (3.6-5.2) mmol/L Chloride 103 (100-108) mmol/L Carbon Dioxide 26 (21-32) mmol/L Anion Gap 13.7 (5.0-14.0) mmol/L BUN 12 D (7-18) mg/dL Creatinine 1.0 (0.8-1.3) mg/dL Est Cr Clr Drug Dosing 104.54 mL/min Estimated GFR (MDRD) > 60 (>60) Glucose 116 H (74-106) mg/dL Calcium 9.9 (8.5-10.1) mg/dL Urine Color Urine Appearance Urine pH (4.5-8.0) Ur Specific [place] (1.008-1.030) Urine Protein (NEGATIVE) mg/dL Urine Glucose (UA) (NEGATIVE) mg/dL Urine Ketones (NEGATIVE) mg/dL Urine Occult Blood (NEGATIVE) Urine Nitrite (NEGAITVE) Urine Bilirubin (NEGATIVE) Urine Urobilinogen (NORMAL) mg/dL Ur Leukocyte Esterase (NEGATIVE) Urine RBC (0-5) Urine WBC (0-5) Ur Epithelial Cells Amorphous Sediment Urine Bacteria Urine Mucus Urine Opiates Screen (NEGATIVE) Ur Oxycodone Screen (NEGATIVE) Urine Methadone Screen (NEGATIVE) Ur Propoxyphene Screen (NEGATIVE) Ur Barbiturates Screen (NEGATIVE) Ur Tricyclics Screen (NEGATIVE) Ur Phencyclidine Scrn (NEGATIVE) Ur Amphetamine Screen (NEGATIVE) U Methamphetamines Scrn (NEGATIVE) Urine MDMA Screen (NEGATIVE) U Benzodiazepines Scrn (NEGATIVE) U Cocaine Metab Screen (NEGATIVE) U Marijuana (THC) Screen (NEGATIVE) Ethyl Alcohol < 3 mg/dL Re-Assessment/Re-Exam: Cooperative here in the ER, not a reliable historian. Departure - Departure Time of Disposition: 18:15 Disposition: DC/Tfer to Psych Hosp/Unit 65 Condition: Fair Clinical Impression: Mental health disorder - Discharge Information Referrals: PCP,None [Primary Care Provider] - Forms: ED Department Discharge ED Communication - Discussed Case With (1) Discussed Case With (1): Other (His mother on the phone at [id number])
[2017-12-28] MEDS ORDERED: OLANZapine 5 MG Tab PO ONE (17:41)
[2017-12-28] MEDS ORDERED: LORazepam 1 MG Tab PO ONE (17:42)
[2017-12-28] MEDS ORDERED: LORazepam 2 MG/ML MDV IM STA (18:15)
== END 2017-12-28 18:36 ==
LOC: JP.ED 13:50
DX: F99 Mental disorder, not otherwise specified (principal); F20.9 Schizophrenia, unspecified; E11.9 Type 2 diabetes mellitus without complications; F17.210 Nicotine dependence, cigarettes, uncomplicated; Z88.8 Allergy status to other drugs, medicaments and biological substances; Z79.899 Other long term (current) drug therapy; Z79.84 Long term (current) use of oral hypoglycemic drugs
CPT/HCPCS: 36415; 80048; 80305; 81001; 85027; 96372; 99284; 99285; G0480; J2060; A9270-GY